=== PATIENT | female | born 1995 | race Caucasian/White ===

== ENCOUNTER 2016-09-08 02:34 | Emergency (ER) | payer OTHER ==
[2016-09-08 02:48] VITALS: BP 118/87
[2016-09-08] MEDS ORDERED: diPHENhydraMINE IV* 50 MG/ML 1 ml VIAL (BENADRYL) ONE (03:03)
[2016-09-08] MEDS ORDERED: methylPREDNISolone 125 MG* 2 ML VIAL ONE (03:03)
[2016-09-08] MEDS: methylPREDNISolone 125 MG* 2 ML VIAL IV ONE ×2 (03:05→03:18)
[2016-09-08] MEDS: diPHENhydraMINE IV* 50 MG/ML 1 ml VIAL (BENADRYL) IV ONE ×2 (03:05→03:16)
[2016-09-08] MEDS ORDERED: predniSONE TAB* 20 MG ONE (03:11)
[2016-09-08] MEDS ORDERED: diPHENhydraMINE PO* 50 MG ONE (03:11)
[2016-09-08] MEDS ORDERED: predniSONE TAB* 20 MG PO ONE ×2 (03:12→03:20)
[2016-09-08] MEDS ORDERED: diPHENhydraMINE PO* 50 MG PO ONE (03:20)
--- NOTE | 2016-09-08 04:28 | ED ---
Santosh Ray Aidan, scribed for Brett Lang on 09/08/16 at 0330 . Skin Complaint - HPI Summary HPI Summary: 21 y/o female presents to the ED with a complaint of an acute, constant, moderate rash that presents erythematous and with swelling. The rash began just HEALTH LEAD on her face and has spread to her chest since onset. Pt denies any difficulty breathing or SOB. She is unaware of what caused this reaction. - History of Current Complaint Chief Complaint: EDAllergicReaction Time Seen by Provider: 09/08/16 03:02 Stated Complaint: RASH Hx Obtained From: Patient Onset/Duration: Started Minutes Ago, Still Present Skin Exposure Onset/Duration: Minutes Ago Timing: Constant, Lasting Minutes - still present Onset Severity: Moderate Current Severity: Moderate Pain Intensity: 0 - no associated pain Pain Scale Used: 0-10 Numeric Skin Location: Diffuse - rash began on the Pt's chest and has spread diffusely thoughout her chest Character: Swelling, Redness Aggravating Symptom(s): Other: - unknown Alleviating Symptom(s): Other: - unknown Associated Signs & Symptoms: Negative Related History: Other: - unknown - Allergy/Home Medications Allergies/Adverse Reactions: Allergies Allergy/AdvReac Type Severity Reaction Status Date / Time No Known Allergies Allergy Verified 01/06/15 18:39 PMH/Surg Hx/FS Hx/Imm Hx Sensory History: Denies: Hx Contacts or Glasses Opthamlomology History: Denies: Hx Contacts or Glasses Infectious Disease History: No Infectious Disease History: Denies: Traveled Outside the [place] in Last 30 Days - Family History Known Family History: Negative: Seizure Disorder - Social History Occupation: Student Lives: Alone Alcohol Use: Rare Substance Use Type: Reports: None Smoking Status (MU): Never Smoked Tobacco Review of Systems Constitutional: Negative Eyes: Negative ENT: Negative Cardiovascular: Negative Respiratory: Negative Gastrointestinal: Negative Genitourinary: Negative Musculoskeletal: Negative Positive: Rash. Negative: Bruising, Other Neurological: Negative Psychological: Normal All Other Systems Reviewed And Are Negative: Yes Physical Exam Triage Information Reviewed: Yes Vital Signs On Initial Exam: Initial Vitals Temp Pulse Resp BP Pulse Ox 99.5 F 106 16 118/87 98 09/08/16 02:41 09/08/16 02:41 09/08/16 02:41 09/08/16 02:41 09/08/16 02:41 Vital Signs Reviewed: Yes Appearance: Positive: Well-Appearing, No Pain Distress, Well-Nourished Skin: Positive: Warm, Dry, Other - macular erythemetous rash, diffusely. Negative: Skin Color Reflects Adequate Perfusion - rash Head/Face: Positive: Normal Head/Face Inspection Eyes: Positive: EOMI, CESAR ENT: Positive: Normal ENT inspection Neck: Positive: Supple, Nontender Respiratory/Lung Sounds: Positive: Clear to Auscultation, Breath Sounds Present Cardiovascular: Positive: RRR, Pulses are Symmetrical in both Upper and Lower Extremities Abdomen Description: Positive: Nontender, Soft Bowel Sounds: Positive: Present Musculoskeletal: Positive: Strength/ROM Intact Neurological: Positive: Sensory/Motor Intact, Alert, Oriented to Person Place, Time Psychiatric: Positive: Affect/Mood Appropriate AVPU Assessment: Alert - Evy Coma Scale Coma Scale Total: 15 Diagnostics - Vital Signs Vital Signs Temp Pulse Resp BP Pulse Ox 09/08/16 02:41 99.5 F 106 16 118/87 98 - Laboratory Lab Statement: Any lab studies that have been ordered have been reviewed, and results considered in the medical decision making process. Course/Dx - Course Course Of Treatment: This is a 21 y/o female with an acute, constant, moderate rash that presents erythematous and with swelling. The rash began just HEALTH LEAD on her face and has spread to her chest since onset. Pt denies any difficulty breathing or SOB. She is unaware of what caused this reaction. - Diagnoses Provider Diagnoses: Allergic reaction Discharge - Discharge Plan Condition: Stable Disposition: HOME Discharge Disposition Comment: Please follow up with your primary care physician within 3 days. Prescriptions: Methylprednisolone [Medrol Dosepak 4 MG*] 0 mg PO .SEE TESS INSTRUCTION #1 tab diPHENhydraMINE PO* [Benadryl PO*] 25 mg PO Q6H PRN #20 cap PRN Reason: Rash Patient Education Materials: General Allergic Reaction (ED) Referrals: [facility] GINA Velázquez [Primary Care Provider] - The documentation as recorded by the Santosh lantigua Aidan accurately reflects the service I personally performed and the decisions made by , Brett Lang.
== END 2016-09-08 04:25 | disposition home or self-care (01) ==
LOC: ED 02:34
DX: T78.40XA Allergy, unspecified, initial encounter (principal); X58.XXXA Exposure to other specified factors, initial encounter; Y92.9 Unspecified place or not applicable
CPT/HCPCS: 96374; 99283; A9270-GY; J1200; J2930; J7512